=== PATIENT | male | born 1955 | race Caucasian/White ===

== ENCOUNTER 2018-02-07 07:06 | Emergency (ER) | payer BC ==
[~2018-02-07] VITALS: Ht 182.9 cm; Wt 97.1 kg
[2018-02-07] MEDS ORDERED: IV NORMAL SALINE 500 ML BAG IV ONE (07:15)
[2018-02-07] MEDS ORDERED: ONDANSETRON 4 MG/2 ML VIAL IV ONE (07:15)
[2018-02-07] MEDS ORDERED: HYDROMORPHONE 1 MG/1 ML DISP.SYRIN IV ONE (07:15)
[2018-02-07] MEDS ORDERED: METF10004 PO (07:18)
[2018-02-07] MEDS ORDERED: HYDROMORPHONE 2 MG/1 ML DISP.SYRIN ONE (07:27)
[2018-02-07] MEDS ORDERED: ONDANSETRON 4 MG/2 ML VIAL ONE (07:27)
[2018-02-07 07:32] LABS: BASOPHILS # (AUTO) 0.1 K/uL (0.0-8.0); BASOPHILS % (AUTO) 0.7 % (0.0-2.0); EOSINOPHILS # (AUTO) 0.3 K/uL (0.0-0.7); EOSINOPHILS % (AUTO) 3.1 % (0.0-7.0); HEMATOCRIT 39.5 % (36.7-47.1); HEMOGLOBIN 13.2 g/dL (12.5-16.3); LYMPHOCYTES # (AUTO) 3.2 K/uL (20.0-40.0); LYMPHOCYTES % (AUTO) 38.5 % (20.5-51.5); MEAN CORPUSCULAR HEMOGLOBIN 27.4 uug (23.8-33.4); MEAN CORPUSCULAR HGB CONC 33 g/dL (32.5-36.3); MONOCYTES # (AUTO) 0.7 K/uL (2.0-10.0); MONOCYTES % (AUTO) 7.9 % (0.0-11.0); NEUTROPHILS # (AUTO) 4.2 K/uL (1.8-8.9); NEUTROPHILS % (AUTO) 49.8 % (38.5-71.5); PLATELET COUNT (AUTO) 174 K/uL (152-348); RED BLOOD CELL COUNT(AUTO) 4.82 MIL/uL (4.06-5.63); WHITE BLOOD COUNT (AUTO) 8.4 K/uL (3.6-10.2)
[2018-02-07 07:40] LABS: CREATININE 0.7 mg/dL (0.6-1.3)
[2018-02-07 07:45] LABS: BILIRUBIN,DIRECT 0.1 mg/dL (0.0-0.2); BILIRUBIN,TOTAL 0.5 mg/dL (0.2-1.0); TOTAL PROTEIN, SERUM 6.9 g/dL (6.4-8.2)
[2018-02-07 08:28] LABS: *BILIRUBIN,URIN NEGATIVE (NEGATIVE); *BLOOD, URINE 2+ (NEGATIVE); *CLARITY,URINE CLEAR (CLEAR); *COLOR,URINE YELLOW (YELLOW); *KETONES,URINE NEGATIVE (NEGATIVE); *PROTEIN,URINE 1+ (NEGATIVE); *UROBILINOGEN,URINE 0.2 E.U./dl (NORMAL); LEUKOCYTE ESTERASE ,URINE NEGATIVE (NEGATIVE); NITRITE, URINE NEGATIVE (NEGATIVE); UGLUCOSE NEGATIVE (NEGATIVE)
[2018-02-07 08:38] LABS: WBC,URINE 0-3 /HPF (0-3)
[2018-02-07 08:39] LABS: BACTERIA,URINE FEW /HPF (NONE SEEN); MUCUS,URINE FEW /LPF (0-FEW); SQUAMOUS EPITHELIAL CELL,UR FEW /HPF (NONE SEEN)
[2018-02-07] MEDS ORDERED: KETOROLAC TROMETHAMINE 30 MG INJ IVP ONE (09:15)
[2018-02-07] MEDS ORDERED: FAMOTIDINE. 20 MG/2 ML VIAL IV ONE ×2 (09:15→09:18)
[2018-02-07] MEDS ORDERED: KETOROLAC TROMETHAMINE 30 MG INJ ONE (09:18)
[2018-02-07] MEDS ORDERED: KETOROLAC TROMETHAMINE 15 MG INJ ONE (10:23)
--- NOTE | 2018-02-07 10:28 | NUR ---
Patient discharged to home in stable conditon. Written and verbal after care instructions given. Patient verbalizes understanding of instructions.pt walks in steady gait. pt says feels better.
[2018-02-07 10:29] VITALS: BP 131/77
[2018-02-07] MEDS ORDERED: KETOROLAC TROMETHAMINE 15 MG INJ IVP ONE (10:30)
== END 2018-02-07 10:29 | disposition home or self-care (01) ==
LOC: ER 07:06
DX: K80.50 Calculus of bile duct without cholangitis or cholecystitis without obstruction (principal); E11.9 Type 2 diabetes mellitus without complications; Z91.010 Allergy to peanuts; Z79.84 Long term (current) use of oral hypoglycemic drugs
CPT/HCPCS: 36415; 71045; 76700; 80048; 80076; 81001; 83690; 84484; 85025; 93005; 96374; 96375; 96376; 99285; A4663; J1170; J1885 ×2; J2405; J3490; J7030; 70030-TC